=== PATIENT | female | born 1965 | race Caucasian/White ===

== ENCOUNTER 2017-03-09 15:04 | Inpatient (IN) ==
[2017-03-09] MEDS ORDERED: NS 1,000 ML IV PRN (15:30)
[2017-03-09 15:57] LABS: OCCULT BLOOD 1 POSITIVE (NEGATIVE)
[2017-03-09 16:26] LABS: MANUAL DIFF NEEDED? NO
[2017-03-09 16:29] LABS: BASO% 0.1 % (0.0-0.8); HEMATOCRIT 44.6 % (37.0-47.0); IMM GRAN# 0.16 X1000 (0.0-0.04); IMM GRAN% 0.8 % (0.0-0.5); LYMPH# 2.78 X1000 (1.2-3.4); LYMPH% 14.2 % (20.5-51.1); MCH 32.1 PG (27-31); MCHC 33.6 g/dL (33-37); MCV 95.3 FL (81-99); MONO# 1.26 X1000 (0.11-0.59); MONO% 6.4 % (1.7-9.3); MPV 10.2 FL (7.4-10.4); NEUT% 78.5 % (42.2-75.2); PLT 276 X1000 (130-400); RBC 4.68 XMIL (4.2-5.4)
[2017-03-09 16:49] LABS: INR 1.01 (0.86-1.15); PROTIME 13.6 Seconds (12.1-15.5)
[2017-03-09 16:50] LABS: PTT PL 42.3 Seconds (22.6-43.9)
[2017-03-09 16:53] LABS: AGAP 13; ALBUMIN 4.3 g/dL (3.5-5.0); ALKALINE PHOSPHATASE 92 U/L (32-104); BUN 14 mg/dL (8-22); CHLORIDE 102 mmol/L (98-107); COSMO 274; GOT 21 U/L (10-30); GPT 13 U/L (10-36); POTASSIUM 3.7 mmol/L (3.5-5.1); SODIUM 137 mmol/L (136-145); TCO2 22 mmol/L (25-35); TOTAL PROTEIN 7.9 g/dL (6.3-8.3)
[2017-03-09 17:28] LABS: URINE CULTURE PL NEEDED? NO
[2017-03-09 17:36] LABS: UR AMPHETAMINES QUAL NONE DETECTED (NONE DETECT); UR BARBITUATES QUAL NONE DETECTED (NONE DETECT); UR BENZODIAZEPIN QUAL PRESUMPTIVE POSITIVE (NONE DETECT); UR CANNABINOIDS QUAL NONE DETECTED (NONE DETECT); UR COCAINE QUAL NONE DETECTED (NONE DETECT); UR MDMA QUAL NONE DETECTED (NONE DETECT); UR METHADONE QUAL NONE DETECTED (NONE DETECT); UR METHAMPHETAMINE QUAL NONE DETECTED (NONE DETECT); UR OPIATES QUAL NONE DETECTED (NONE DETECT); UR OXYCODONE QUAL NONE DETECTED (NONE DETECT); UR PCP QUAL NONE DETECTED (NONE DETECT); UR TCA QUAL NONE DETECTED (NONE DETECT)
--- NOTE | 2017-03-09 17:43 | Diag Imaging Result Doc PS360 ---
EXAM: CHEST-PORTABLE HISTORY: pain TECHNIQUE: COMPARISON: 07/22/2011 FINDINGS: The lungs are well expanded. The heart is not enlarged. Minimal increased markings in the lower lungs. No consolidation. No pleural effusions identified. IMPRESSION: Fibrosis versus tiny infiltrates in the lung bases. Electronically signed by Chilo Sarabia 03/09/2017 5:40 PM
[2017-03-09 17:52] LABS: BILIRUBIN URINE NEGATIVE (NEGATIVE); BLOOD URINE NEGATIVE (NEGATIVE); CLARITY CLEAR (CLEAR); COLOR YELLOW; GLUCOSE URINE NEGATIVE (NEGATIVE); LEUKOCYTES URINE NEGATIVE (NEGATIVE); NITRITE URINE NEGATIVE (NEGATIVE); PROTEIN URINE NEGATIVE (NEGATIVE); SP GRAVITY URINE 1.015; URINE EPITHELIAL CELLS <10 /HPF (<10); URINE RBC <10 /HPF (<10); URINE SOURCE CLEAN CATCH; URINE WBC <10 /HPF (<10); UROBILINOGEN URINE NORMAL
--- NOTE | 2017-03-09 17:58 | PROVIDER DOCUMENTATION ---
This chart was entered by Tammy Ramon Scribe, acting as scribe for Alfredo Devlin MD. HPI-Abdominal Pain/GI Problem - General Source: patient - History of Present Illness-ABD Nature of Presenting Problems: Pt is 51 y/o F presents to the ED via EMS for abdominal pain and rectal bleeding. Pt states symptoms started this am. Pt denies N and V. Abdominal Pain Onset Location: reports: generalized abdomen Pain Radiation: reports: no radiation Quality of Pain: reports: aching Severity in ED: reports: mild Onset/Duration: reports: this morning Timing: reports: still present Activities at Onset: reports: light activity Exposure to sick contacts?: No Modifying Factors: improves with: nothing Associated Symptoms: reports: other (rectal bleeding). denies: anxiety, arm pain, back/neck pain, chest pain, constipation, cough, diaphoresis, diarrhea, dizziness, EENT symptoms, fatigue, fever/chills, genitourinary problems, headaches, heartburn, joint pain, loss of appetite, malaise, muscle aches, sinus congestion/drainage, nausea, rash, seizure, shortness of breath, sensory/ motor loss, pain with inspiration, swelling/mass in abdomen, syncope, vomiting, weakness, trouble walking Last BM: this morning Dark Stools Present?: reports: bright red blood Rectal Bleeding: reports: blood mixed with stool Rectal Pain: reports: none Emesis Description: reports: none Bruising or Bleeding Gums?: No Similar Symptoms Previously?: No Recently seen or treated by another doctor?: No <Alfredo Devlin - Last Filed: 03/09/17 17:58> <Lei Montano - Last Filed: 03/09/17 19:00> - General Chief Complaint: Rectal Bleeding Stated Complaint: GI GLEED Time Seen by Provider: 03/09/17 15:21 Allergies/Adverse Reactions: Patient Allergies Allergy/AdvReac Type Severity Reaction Status Date / Time codeine Allergy ANAPHYLAXIS Verified 03/09/17 15:08 cyclobenzaprine HCl * Allergy ANAPHYLAXIS Verified 03/09/17 15:08 [From Flexeril] Home Medications: Home Medication List Medication Instructions Recorded Confirmed Last Taken Type Clonidine [Catapres] 0.1 mg PO HS 01/05/15 01/05/15 01/04/15 History Levofloxacin 500 mg PO DAILY #7 tablet 01/05/15 Unknown Rx Levothyroxine [Synthroid] 88 microgm PO DAILY 01/05/15 01/05/15 12/29/14 History Oxybutynin [Ditropan] 5 mg PO DAILY #3 tablet 01/05/15 Unknown Rx Phenazopyridine HCl [Pyridium] 100 mg PO BID #6 tablet 01/05/15 Unknown Rx Quetiapine Fumarate [Seroquel] 400 mg PO DAILY 01/05/15 01/05/15 01/04/15 History Amlodipine Besylate [Norvasc] 10 mg PO DAILY #30 tablet 03/09/17 Unknown Rx Azithromycin 250 mg PO DAILY #6 tablet 03/09/17 Unknown Rx Review of Systems - Adult - REVIEW OF SYSTEMS - ADULT Constitutional: reports: no symptoms reported Eyes: reports: no symptoms reported Ears, Nose, Mouth & Throat: reports: no symptoms reported Cardiovascular: reports: no symptoms reported Respiratory: reports: no symptoms reported Gastrointestinal: reports: abdominal pain, rectal bleeding. denies: diarrhea, nausea, vomiting Genitourinary: reports: no symptoms reported Musculoskeletal: reports: no symptoms reported Integumentary: reports: no symptoms reported Neurological: reports: no symptoms reported Psychiatric: reports: no symptoms reported Endocrine: reports: no symptoms reported Hematologic/Lymphatic: reports: no symptoms reported Allergic/Immunologic: reports: no symptoms reported All Other Systems: Reviewed and Negative <Alfredo Devlin - Last Filed: 03/09/17 17:58> - REVIEW OF SYSTEMS - ADULT Constitutional: denies: chills, fever <Lei Montano - Last Filed: 03/09/17 19:00> Past History - Adult - PAST MEDICAL HISTORY-ADULT Review of Records: reports: Nursing Assessment Review, Medications Reviewed, Social history reviewed & non-contributory. Major Childhood Illnesses: reports: denies history Cardiovascular: reports: HTN Respiratory: reports: denies history Gastrointestinal: reports: denies history Obstetrical/Gynecological: reports: denies history Genitourinary: reports: denies history Musculoskeletal: reports: denies history Neurological: reports: denies history Endocrine/Immune: reports: thyroid disorder Other Conditions: reports: denies history - PRIOR SURGERIES/PROCEDURES Surgical/Procedure History: reports: appendectomy, hysterectomy, - IMMUNIZATION STATUS Childhood Immunizations: See Nurse Assessment Flu Vaccine: See Nurse Assessment - FAMILY HISTORY Family History: reviewed, not pertinent - SOCIAL HISTORY Smoking: quit less than 1 year, cigarettes Substance Use: denies Living Situation: family <ClausAlfredo Yuniel - Last Filed: 03/09/17 17:58> - PAST MEDICAL HISTORY-ADULT Review of Records: reports: Nursing Assessment Review, Medications Reviewed, Social history reviewed & non-contributory. Cardiovascular: reports: HTN <Lei Montano - Last Filed: 03/09/17 19:00> Physical Exam-General - PHYSICAL EXAM-ADULT Initial Vital Signs Reviewed: Yes - CONSTITUTIONAL General Appearance: alert, no apparent distress - EYES Eyes: PERRL/EOMI, pink conjunctivae - HEAD, EARS, NOSE, MOUTH & THROAT HENMT: normal ENT inspection - NECK Neck: normal inspection - RESPIRATORY Respiratory: chest non-tender, lungs clear, normal breath sounds - CARDIOVASCULAR Cardiovascular: normal peripheral pulses, regular rate, rhythm - GASTROINTESTINAL (ABDOMEN) Abdominal Exam: normal bowel sounds, soft, tenderness (generalized) - GENITOURINARY Rectal Exam: normal rectal tone, blood streaked stool. negative: black stool, hemorrhoids, mass, tenderness - LYMPHATIC Lymphatic: no adenopathy - MUSCULOSKELETAL Back Exam: normal inspection Extremity: normal inspection - SKIN Integumentary: warm/dry, pallor - NEUROLOGIC Neurologic: grossly normal - PSYCHIATRIC Psych/Mental Status: normal mood/affect, oriented x 3 <Alfredo Devlin - Last Filed: 03/09/17 17:58> - PHYSICAL EXAM-ADULT Initial Vital Signs Reviewed: Yes - CONSTITUTIONAL General Appearance: appears well, alert - EYES Eyes: PERRL/EOMI, pink conjunctivae <Lei Montano - Last Filed: 03/09/17 19:00> Progress - PLAN OF CARE/RESULTS Progress/Plan/Lab Results: Vital Signs - 8 hr 03/09/17 15:06 Temperature 97.4 F L Pulse Rate 74 Respiratory Rate 20 Blood Pressure 149/106 O2 Sat by Pulse Oximetry 95 Result Diagrams: 03/09/17 16:09 03/09/17 16:09 - XRAY 1 XRAY Study: Chest Impression: Abnormal XRAY Interpretation: fibrosis versus tiny infiltrates in the lung bases - CHANGE OF SHIFT REPORT (ED Provider) Report Given and Care Transferred to:: Dr. Montano Time of Transfer: 17:49 Items Pending: CT/MRI Results (head CT) <Alfredo Devlin - Last Filed: 03/09/17 17:58> - PLAN OF CARE/RESULTS Progress/Plan/Lab Results: Vital Signs - 8 hr 03/09/17 15:06 Temperature 97.4 F L Pulse Rate 74 Respiratory Rate 20 Blood Pressure 149/106 O2 Sat by Pulse Oximetry 95 Laboratory Results - last 24 hr 03/09/17 03/09/17 03/09/17 15:35 16:09 16:09 WBC 19.60 H RBC 4.68 Hgb 15.0 Hct 44.6 MCV 95.3 MCH 32.1 H MCHC 33.6 RDW Std Deviation 15.3 H Plt Count 276 MPV 10.2 Immature Gran % (Auto) 0.8 H Neut % (Auto) 78.5 H Lymph % (Auto) 14.2 L [place] % (Auto) 6.4 Eos % (Auto) 0.0 Baso % (Auto) 0.1 Immature Gran # (Auto) 0.16 H Neut # (Auto) 15.39 H Lymph # (Auto) 2.78 [place] # (Auto) 1.26 H Eos # (Auto) 0.00 Baso # (Auto) 0.01 PT INR APTT (Factor Assay) Sodium 137 Potassium 3.7 Chloride 102 Carbon Dioxide 22 L Anion Gap 13 BUN 14 Creatinine 0.5 Estimated GFR/1.73 m2 > 60 BUN/Creatinine Ratio 28 Glucose 99 Calculated Osmolality 274 Calcium 9.0 Total Bilirubin 0.70 AST 21 ALT 13 Alkaline Phosphatase 92 Total Protein 7.9 Albumin 4.3 Globulin 4.0 Albumin/Globulin Ratio 1.0 Urine Source Urine Color Urine Clarity Urine pH Ur Specific [place] Urine Protein Urine Ketones Urine Blood Urine Nitrite Urine Bilirubin Urine Urobilinogen Urine Microscopic RBC Urine WBC Urine Microscopic WBC Ur Epithelial Cells Urine Bacteria Urine Glucose Stool Occult Blood POSITIVE A Urine Opiates Screen Ur Oxycodone Screen Urine Methadone Screen Ur Barbituates Screen Ur Tricyclics Screen Ur Phencyclidine Scrn Ur Amphetamines Screen U Methamphetamines Scrn Urine MDMA Screen U Benzodiazepines Scrn Urine Cocaine Screen U Cannabinoids Screen Blood Type Antibody Screen 03/09/17 03/09/17 03/09/17 16:09 16:09 17:22 WBC RBC Hgb Hct MCV MCH MCHC RDW Std Deviation Plt Count MPV Immature Gran % (Auto) Neut % (Auto) Lymph % (Auto) [place] % (Auto) Eos % (Auto) Baso % (Auto) Immature Gran # (Auto) Neut # (Auto) Lymph # (Auto) [place] # (Auto) Eos # (Auto) Baso # (Auto) PT 13.6 INR 1.01 APTT (Factor Assay) 42.3 Sodium Potassium Chloride Carbon Dioxide Anion Gap BUN Creatinine Estimated GFR/1.73 m2 BUN/Creatinine Ratio Glucose Calculated Osmolality Calcium Total Bilirubin AST ALT Alkaline Phosphatase Total Protein Albumin Globulin Albumin/Globulin Ratio Urine Source CLEAN CATCH Urine Color YELLOW Urine Clarity CLEAR Urine pH 6.0 Ur Specific [place] 1.015 Urine Protein NEGATIVE Urine Ketones TRACE Urine Blood NEGATIVE Urine Nitrite NEGATIVE Urine Bilirubin NEGATIVE Urine Urobilinogen NORMAL Urine Microscopic RBC <10 Urine WBC NEGATIVE Urine Microscopic WBC <10 Ur Epithelial Cells <10 Urine Bacteria NEGATIVE Urine Glucose NEGATIVE Stool Occult Blood Urine Opiates Screen Ur Oxycodone Screen Urine Methadone Screen Ur Barbituates Screen Ur Tricyclics Screen Ur Phencyclidine Scrn Ur Amphetamines Screen U Methamphetamines Scrn Urine MDMA Screen U Benzodiazepines Scrn Urine Cocaine Screen U Cannabinoids Screen Blood Type AB NEGATIVE Antibody Screen NEGATIVE 03/09/17 17:22 WBC RBC Hgb Hct MCV MCH MCHC RDW Std Deviation Plt Count MPV Immature Gran % (Auto) Neut % (Auto) Lymph % (Auto) [place] % (Auto) Eos % (Auto) Baso % (Auto) Immature Gran # (Auto) Neut # (Auto) Lymph # (Auto) [place] # (Auto) Eos # (Auto) Baso # (Auto) PT INR APTT (Factor Assay) Sodium Potassium Chloride Carbon Dioxide Anion Gap BUN Creatinine Estimated GFR/1.73 m2 BUN/Creatinine Ratio Glucose Calculated Osmolality Calcium Total Bilirubin AST ALT Alkaline Phosphatase Total Protein Albumin Globulin Albumin/Globulin Ratio Urine Source Urine Color Urine Clarity Urine pH Ur Specific [place] Urine Protein Urine Ketones Urine Blood Urine Nitrite Urine Bilirubin Urine Urobilinogen Urine Microscopic RBC Urine WBC Urine Microscopic WBC Ur Epithelial Cells Urine Bacteria Urine Glucose Stool Occult Blood Urine Opiates Screen NONE DETECTED Ur Oxycodone Screen NONE DETECTED Urine Methadone Screen NONE DETECTED Ur Barbituates Screen NONE DETECTED Ur Tricyclics Screen NONE DETECTED Ur Phencyclidine Scrn NONE DETECTED Ur Amphetamines Screen NONE DETECTED U Methamphetamines Scrn NONE DETECTED Urine MDMA Screen NONE DETECTED U Benzodiazepines Scrn PRESUMPTIVE POSITIVE A Urine Cocaine Screen NONE DETECTED U Cannabinoids Screen NONE DETECTED Blood Type Antibody Screen Orders Category Date Time Status CHEST-PORTABLE [RAD] Stat Exams 03/09/17 17:19 Completed HEAD W/O CONTRAST [CT] Stat Exams 03/09/17 17:38 Completed CBC WITH ELECTRONIC DIFF [HEME] Stat Lab 03/09/17 16:09 Completed COMPREHENSIVE METABOLIC PANEL [CHEM] Stat Lab 03/09/17 16:09 Completed OCCULT BLOOD NON-FECES PL Stat Lab 03/09/17 15:54 Ordered OCCULT BLOOD SCREEN STOOL PL Stat Lab 03/09/17 15:35 Completed PROTIME WITH INR PL [COAG] Stat Lab 03/09/17 16:[address] [COAG] Stat Lab 03/09/17 16:09 Completed TYPE & SCREEN [BBK] Stat Lab 03/09/17 16:[address] W/POSS RFLX CULT [URINALYSIS] Stat Lab 03/09/17 17:22 Completed URINE DRUG SCREEN PL Stat Lab 03/09/17 17:22 Completed 0.9% Sodium Chloride Inj [Ns] 1,000 ml Med 03/09/17 15:30 Active IV 125 mls/hr Amlodipine [Norvasc] Med 03/09/17 18:51 Once 10 mg PO NOW ONE CefTRIAXONE 1 GM/NS [Rocephin 1 gm/Ns] Med 03/09/17 18:51 Ordered 1 gm in 50 ml IV NOW Result Diagrams: 03/09/17 16:09 03/09/17 16:09 - REASSESSMENT Reassessment #1 Time Reassessed: 18:53 Status: improving (will treat her infiltrate as pneumonia for now, arrange referral to GI for colonoscopy, and adjust BP medications for fu with Dr Jim ) <Lei Montano - Last Filed: 03/09/17 19:00> Departure <Alfredo Devlin - Last Filed: 03/09/17 17:58> - Departure Date of Disposition Decision: 03/09/17 Time of Disposition Decision: 18:54 Certified Medical Emergency: Emergent - Critical Care Note This patient required my direct & personal management of CC.: No <Lei Montano - Last Filed: 03/09/17 19:00> - Departure DIAGNOSIS: Pulmonary fibrosis, unspecified GI bleeding Qualifiers: GI bleed type/associated pathology: unspecified gastrointestinal hemorrhage type Qualified Code(s): K92.2 - Gastrointestinal hemorrhage, unspecified Hypertension Qualifiers: Hypertension type: essential hypertension Qualified Code(s): I10 - Essential ( primary) hypertension Disposition: HOME 01 Condition: Stable Additional Freetext Instructions: fu with Dr krishna for your blood pressure stabilization, make appointment with Dr Ramirez to investigate your GI bleeding ED Follow Up Instructions: You have been treated by a care provider in the Emergency Department. These instructions are being provided to you so you can have an understanding of how to care for yourself upon discharge. Upon discharge from the Emergency Department, you are responsible for making arrangements for follow-up care by a physician of your choice. Take all prescribed medications as directed. Return to the Emergency Department immediately for any new or worsening symptoms. You may call the Physician Referral phone number at [phone] to obtain a list of Physicians who are taking new patients. Prescriptions: Azithromycin 250 mg PO DAILY #6 tablet Amlodipine Besylate [Norvasc] 10 mg PO DAILY #30 tablet Referrals and Follow-Ups: Justo Brown MD [Primary Care Provider] - This chart was documented by the indicated scribe, (Tammy Ramon Scribe) and accurately reflects the services I performed and decisions made by me, Alfredo Devlin MD, as attested by the provider's signature.
--- NOTE | 2017-03-09 18:10 | Diag Imaging Result Doc PS360 ---
EXAM: HEAD W/O CONTRAST HISTORY: AMS TECHNIQUE: Dose reduction protocol COMPARISON: 07/23/2011 FINDINGS: No parenchymal hemorrhage. No epidural or subdural hematoma. No subarachnoid hemorrhage. No mass identified on this noncontrasted exam. No hydrocephalus. Small old infarct in left cerebellum. No sinus opacification. IMPRESSION: No hemorrhage. Small old left cerebellar infarct Electronically signed by Chilo Sarabia 03/09/2017 6:07 PM
[2017-03-09] MEDS ORDERED: ROCEPHIN 1 GM/NS 1 GM/50 ML IVPB IV ONE (18:51)
[2017-03-09] MEDS ORDERED: NORVASC PO ONE (18:51)
--- NOTE | 2017-03-09 21:13 | Diag Imaging Result Doc PS360 ---
EXAM: CT ABD/PELVIS W/ IV CONT ONLY HISTORY: rectal bleeding/ leukocytosis TECHNIQUE: Dose reduction protocol COMPARISON: 01/05/2015 FINDINGS: Small infiltrates or atelectasis in the lower lungs. There is fatty infiltration of the liver. The liver is not as fat is a prior exam no calcified gallstones or adjacent inflammation. The gallbladder is distended. Normal spleen, pancreas, and adrenal glands. Normal enhancement of the kidneys. No aortic aneurysm. There is thickening to the wall of the distal descending, sigmoid, and rectum. Mild adjacent inflammation. No free air. No abscess. The urinary bladder is mildly distended. The uterus has been removed. No pelvic mass. IMPRESSION: 1.Colitis involving the distal descending and sigmoid colon 2.Hysterectomy 3.Fatty infiltration of the liver 4.Basilar atelectasis versus small infiltrates in the lower lungs Electronically signed by Chilo Sarabia 03/09/2017 9:11 PM
[2017-03-09 22:07] LABS: BE 0.9 mmoll (-3.0-3.0); BLOOD TYPE ARTERIAL; DRAW SITE R RADIAL; METHB 1.3 % (0.0-1.5); O2(CT) 17.6 mL/dL (15.0-23.0); PCO2(98.6) 39 mmHg (35-45); SAMPLE BLOOD; THB 15.1 g/dL (11.5-17.4); pH(98.6) 7.42 (7.35-7.45)
[2017-03-09 22:10] LABS: MODALITY ROOM AIR; PO2(98.6) 49 mmHg (60-100)
[2017-03-09 22:11] LABS: ALLEN TEST YES
[2017-03-09 23:22] LABS: BE 0.3 mmoll (-3.0-3.0); BLOOD TYPE ARTERIAL; DRAW SITE R RADIAL; METHB 1.1 % (0.0-1.5); O2(CT) 17.2 mL/dL (15.0-23.0); PCO2(98.6) 38 mmHg (35-45); PO2(98.6) 56 mmHg (60-100); SAMPLE BLOOD; SAO2 95.7 % (95.0-100.0); pH(98.6) 7.42 (7.35-7.45)
[2017-03-09 23:28] LABS: ALLEN TEST YES; MODALITY ROOM AIR
[2017-03-10] MEDS ORDERED: ZITHROMAX PO ONE
[2017-03-10] MEDS ORDERED: XANAX PO SCH ×2 (03:13→21:00)
[2017-03-10] MEDS: CATAPRES PO SCH ×2 (03:28→21:23)
[2017-03-10] MEDS: SEROQUEL PO SCH ×2 (03:28→21:23)
--- NOTE | 2017-03-10 06:36 | Diag Imaging Result Doc PS360 ---
EXAM: CT THORAX W/CONTRAST HISTORY: PNEUMONIA TECHNIQUE: COMPARISON: None. FINDINGS: No pleural effusions. Heart is mildly prominent. No thoracic aortic aneurysm or dissection. Normal opacification of the pulmonary arteries and their major branches. There are small mediastinal lymph nodes. A calcified granuloma is found anteriorly in the right lung on image 79. Increased interstitial markings in the lung bases believed to be atelectasis or fibrosis. Prominent emphysema. There are several tiny nonspecific scattered nodules with the largest measuring 6 mm anteriorly in the right lung. IMPRESSION: 1.Severe emphysema 2.Likely basilar atelectasis or fibrosis rather than pneumonia 3.Nonspecific tiny scattered nodules 4.A preliminary report was given at 11:57 PM Electronically signed by Chilo Sarabia 03/10/2017 6:33 AM
[2017-03-10] MEDS: DUONEB (A & A) INH SCH ×5 (07:41→23:01)
[2017-03-10] MEDS: SOLU-MEDROL IV SCH ×4 (07:43→23:00)
[2017-03-10] MEDS: LEVAQUIN 750 MG/D5W 750 MG/150 ML IVPB IV SCH (07:43)
[2017-03-10] MEDS ORDERED: SEROQUEL PO SCH ×2 (09:00→21:00)
[2017-03-10 09:21] LABS: MANUAL DIFF NEEDED? NO
[2017-03-10 09:23] LABS: BASO% 0.1 % (0.0-0.8); HEMATOCRIT 43.6 % (37.0-47.0); HEMOGLOBIN 14.6 g/dL (12.0-16.0); IMM GRAN# 0.14 X1000 (0.0-0.04); IMM GRAN% 0.8 % (0.0-0.5); LYMPH# 2.42 X1000 (1.2-3.4); LYMPH% 13.5 % (20.5-51.1); MCHC 33.5 g/dL (33-37); MCV 95.6 FL (81-99); MONO# 1.26 X1000 (0.11-0.59); MPV 10.2 FL (7.4-10.4); NEUT% 78.6 % (42.2-75.2); PLT 257 X1000 (130-400); RBC 4.56 XMIL (4.2-5.4)
[2017-03-10 09:37] LABS: AGAP 10; BUN 10 mg/dL (8-22); CALCIUM 8.6 mg/dL (8.8-10.2); CHLORIDE 103 mmol/L (98-107); COSMO 271; POTASSIUM 3.6 mmol/L (3.5-5.1); SODIUM 136 mmol/L (136-145); TCO2 24 mmol/L (25-35)
[2017-03-10] MEDS: XANAX PO SCH ×2 (11:02→21:22)
[2017-03-10] MEDS: FLAGYL 500 MG/NS 500 MG/100 ML IVPB IV SCH ×3 (11:37→17:59)
[2017-03-10] MEDS: NS 1,000 ML IV SCH ×2 (12:25→21:22)
--- NOTE | 2017-03-10 12:37 | HISTORY AND PHYSICAL ---
PRIMARY CARE PHYSICIAN: Cadence Aggarwal out of [place]. HISTORY OF PRESENT ILLNESS: Patient presented to the emergency room on date of admission reporting bright red blood with stool that happened once on date of evaluation. She also had preceding diarrhea the night before that has since resolved and said that she went several episodes the night prior. She denies any recent rectal bleeding since or blood with her stool. She does continue to report weakness and overall feeling unwell. She reports abdominal cramping. Of note, she has also had increased dyspnea and a nonproductive cough but she denies any fever or chills and she denies any nausea, vomiting, or additional symptoms. She was found to be hypoxic. She does have a long-term smoking history and feels she probably has chronic lung disease but she has never been diagnosed. She will be admitted for evaluation of her rectal bleeding as well as her hypoxia and a COPD exacerbation. PAST MEDICAL HISTORY: 1. Cervical cancer. 2. Hypertension. 3. Hypothyroidism. 4. Chronic pain. 5. Anxiety. PAST SURGICAL HISTORY: 1. Appendectomy. 2. . 3. Hysterectomy. SOCIAL HISTORY: Patient smokes a pack a day and has done so since she was 14 years old. She denies any alcohol or drug use. FAMILY HISTORY: Positive for cancer but she is not sure what type, this was with her mother. ALLERGIES: Codeine and Flexeril. MEDICATIONS: 1. Seroquel 400 mg p.o. at bedtime. 2. Clonidine 0.1 mg p.o. at bedtime. 3. Xanax 1 mg p.o. at bedtime. REVIEW OF SYSTEMS: Negative 10-point review of systems other than stated in HPI. LABS AND DIAGNOSTICS: CBC, white count 19.60, hemoglobin and hematocrit 15 and 44.6, platelets 276,000. PT 13.6, INR 1.01, PTT 42.3. Blood gases: She had a pH 7.42, PO2 of 56, oxyhemoglobin was 81.7, carboxyhemoglobin was 13.6. BMP: Sodium 137, potassium 3.7, chloride 102, CO2 22, BUN 14, creatinine 0.5. Glucose 99. AST and ALT were within normal limits. UA was within normal limits. She did have a positive occult blood with her stool and was drug screened. Chest CT shows severe emphysema, likely basilar atelectasis or fibrosis or pneumonia. Nonspecific tiny scattered nodules. Head CT showed no hemorrhage with small old cerebellar infarct. Chest x-ray showed fibrosis versus tiny infiltrates in the lung bases. PHYSICAL EXAMINATION: VITAL SIGNS: Temperature 98.6 degrees, pulse 92. Respirations 16. Blood pressure 100/72, O2 saturation 98% on 3 L per nasal cannula. HEENT: Normocephalic, atraumatic. Mucous membranes moist. NECK: Supple. No JVD. CHEST: Bilateral breath sounds diminished. No accessory muscle use noted. Respirations unlabored. CARDIOVASCULAR: Normal S1, S2. ABDOMEN: Abdomen is soft, nontender, nondistended. Positive bowel sounds. EXTREMITIES: Contusion noted to the left anterior knee. Range of motion appropriate. No other abnormalities. NEUROLOGIC: Patient is alert and oriented x4. No neurological deficits noted. ASSESSMENT AND PLAN: 1. Gastrointestinal bleed. We will continue to follow with serial hemoglobin and hematocrit as well as monitor. Likely secondary to colitis. Will treat with Flagyl and Levaquin. Continue to follow. 2. Colitis. We will treat with Levaquin and Flagyl and continue to follow. 3. Elevated white blood count. Will continue to follow this as well. This is likely due to colitis. 4. Hypoxia. Patient likely has long-term chronic lung disease from her long-term nicotine dependence. However this has not been diagnosed. 5. Pulmonary nodules. We will have her follow up with Pulmonology on discharge. 6. History of nicotine dependence. Discussed smoking cessation. 7. Chronic pain. We will treat accordingly. 8. Anxiety. We will treat accordingly and continue her medications. 9. Hypertension. We will continue to follow. Further orders pending physician evaluation. Dictated by CAMILLA Abarca for Rick Campos MD cc: CAMILLA Abarca MD
[2017-03-10] MEDS: NICODERM PATCH TD SCH (15:18)
[2017-03-10] MEDS ORDERED: CATAPRES PO SCH (21:00)
[2017-03-11] MEDS: FLAGYL 500 MG/NS 500 MG/100 ML IVPB IV SCH ×5 (01:00→18:32)
[2017-03-11] MEDS: DUONEB (A & A) INH SCH ×6 (03:17→23:02)
[2017-03-11] MEDS: SOLU-MEDROL IV SCH ×4 (05:47→23:07)
[2017-03-11 06:42] LABS: BASO% 0.1 % (0.0-0.8); EOS# 0.01 X1000 (0.0-0.7); EOS% 0.1 % (0.0-10.0); HEMATOCRIT 40.1 % (37.0-47.0); HEMOGLOBIN 13.2 g/dL (12.0-16.0); IMM GRAN# 0.18 X1000 (0.0-0.04); LYMPH# 1.27 X1000 (1.2-3.4); MANUAL DIFF NEEDED? YES; MCH 32.1 PG (27-31); MCHC 32.9 g/dL (33-37); MCV 97.6 FL (81-99); MONO# 0.48 X1000 (0.11-0.59); MONO% 2.6 % (1.7-9.3); MPV 10.3 FL (7.4-10.4); NEUT% 89.2 % (42.2-75.2); PLT 259 X1000 (130-400); RBC 4.11 XMIL (4.2-5.4)
[2017-03-11 06:59] LABS: AGAP 10; BUN 8 mg/dL (8-22); CALCIUM 8.1 mg/dL (8.8-10.2); CHLORIDE 108 mmol/L (98-107); COSMO 279; POTASSIUM 3.8 mmol/L (3.5-5.1); SODIUM 140 mmol/L (136-145); TCO2 22 mmol/L (25-35)
[2017-03-11 07:31] LABS: BANDS 3 % (0-1); LYMPHS 7 % (21-51); MONO 1 % (1-9)
[2017-03-11] MEDS: LEVAQUIN 750 MG/D5W 750 MG/150 ML IVPB IV SCH (09:22)
[2017-03-11] MEDS: NS 1,000 ML IV SCH ×2 (09:22→20:43)
[2017-03-11] MEDS: NICODERM PATCH TD SCH (09:23)
[2017-03-11] MEDS: XANAX PO SCH ×2 (09:23→20:42)
--- NOTE | 2017-03-11 11:08 | PROGRESS NOTE ---
DATE: 03/11/2017 SUBJECTIVE: This patient is still complaining of abdominal pain. She is not complaining of shortness of breath. As per the patient, 3 days ago she had 2-3 episodes of watery bowel movement but since then no more bowel movements and she is asking for a stool softener. She is tolerating fluids. I will advance the diet to soft mechanical diet today. She denies nausea, vomiting. Usually she goes for a bowel movement every 2 days. OBJECTIVE: Vital Signs: Temperature 97.5 degrees, pulse 67, respiratory rate 18, blood pressure 108/60, O2 saturation 95% on 2 L of nasal cannula. HEENT: Head normocephalic. No trauma. PERRLA. Neck: Supple. No JVD. No masses. Central trachea. Chest: Clear to auscultation. Decreased breath sounds globally. No wheezing. No rales. Cardiovascular: Regular rate and rhythm. No murmurs. Abdomen: Soft, generalized mild tenderness to palpation. Positive bowel sounds. Extremities: Contusion noted to the left anterior knee. Range of motion appropriate. No other abnormalities. Neurological: The patient is alert and oriented x4. No focal neurological deficits. Lower back pain that is chronic. LABORATORY: WBC 18.1, hemoglobin 13.2, hematocrit 40.1, platelets 259,000. Sodium 140, potassium 3.8, chloride 108, bicarbonate 22, BUN 8, creatinine 0.4, glucose 124, calcium 8.1. Stool Hemoccult positive. ASSESSMENT: 1. Colitis involving the distal descending and sigmoid colon. I will continue with levofloxacin and Flagyl, no signs of peritoneal irritation. I will continue with the same management for now. I will advance her diet. 2. Gastrointestinal bleed, this is likely secondary to her colitis. Hemoglobin and hematocrit has been stable. We will monitor the hemoglobin and hematocrit daily. Probably this patient will need to be evaluated by the Gastroenterology Department if the hemoglobin and hematocrit gets worse. But for now, I think she can be seen as an outpatient once her colitis is better. 3. Elevated white blood count, no fever, but the WBC is still high. We will continue to monitor. 4. Hypoxia. The patient has a long-term chronic lung disease and nicotine dependence. However this has not been diagnosed. Probably, she will need to do a pulmonary function test after discharge. 5. Pulmonary nodules. We will have her follow up with pulmonary on discharge. 6. History of nicotine dependence. This patient has been highly advised against tobacco abuse. I will continue with daily cessation education. 7. Chronic pain. Continue with the same management. 8. Anxiety. We will continue with home medication. 9. Hypertension stable. Continue to monitor. PLAN: This patient has a long history of smoking. A CT scan of the chest showed a severe emphysema, bibasilar atelectasis or fibrosis, nonspecific tiny nodules. Upon discharge this patient should follow with a pulmonary doctor so she can get a pulmonary function test. This patient likely has COPD, but she has never been told about that. For her colitis, for now, I will continue with the same management. I will advance her diet and I will monitor the hemoglobin and hematocrit. Probably, she will need to be scoped in the near future. cc: Rick Campos MD
[2017-03-11] MEDS ORDERED: NICODERM PATCH TD ONE (15:00)
[2017-03-11] MEDS: CATAPRES PO SCH (20:42)
[2017-03-11] MEDS: SEROQUEL PO SCH (20:42)
[2017-03-12] MEDS: FLAGYL 500 MG/NS 500 MG/100 ML IVPB IV SCH ×4 (01:25→18:21)
[2017-03-12] MEDS: DUONEB (A & A) INH SCH ×6 (03:03→23:54)
[2017-03-12] MEDS: NS 1,000 ML IV SCH ×4 (06:18→21:28)
[2017-03-12] MEDS: SOLU-MEDROL IV SCH (06:18)
[2017-03-12 06:58] LABS: BASO% 0.1 % (0.0-0.8); HEMATOCRIT 37.9 % (37.0-47.0); HEMOGLOBIN 12.2 g/dL (12.0-16.0); IMM GRAN% 1.1 % (0.0-0.5); LYMPH# 1.37 X1000 (1.2-3.4); LYMPH% 4.9 % (20.5-51.1); MANUAL DIFF NEEDED? YES; MCH 31.7 PG (27-31); MCHC 32.2 g/dL (33-37); MCV 98.4 FL (81-99); MONO# 1.15 X1000 (0.11-0.59); MONO% 4.1 % (1.7-9.3); MPV 10.8 FL (7.4-10.4); NEUT% 89.8 % (42.2-75.2); PLT 282 X1000 (130-400); RBC 3.85 XMIL (4.2-5.4)
[2017-03-12 07:49] LABS: AGAP 11; BUN 10 mg/dL (8-22); CALCIUM 8.4 mg/dL (8.8-10.2); CHLORIDE 108 mmol/L (98-107); COSMO 279; POTASSIUM 3.7 mmol/L (3.5-5.1); SODIUM 139 mmol/L (136-145); TCO2 20 mmol/L (25-35)
[2017-03-12 08:37] LABS: BANDS 3 % (0-1); LYMPHS 6 % (21-51); MONO 1 % (1-9)
[2017-03-12] MEDS: XANAX PO SCH ×2 (09:19→21:27)
[2017-03-12] MEDS: SUBOXONE 8 MG/2 MG SL SCH ×2 (09:19→21:27)
[2017-03-12] MEDS: LEVAQUIN 750 MG/D5W 750 MG/150 ML IVPB IV SCH (09:20)
[2017-03-12] MEDS: NICODERM PATCH TD SCH (09:20)
--- NOTE | 2017-03-12 15:00 | PROGRESS NOTE ---
DATE: 03/12/2017 SUBJECTIVE: The patient is feeling somewhat better today. She still has some diffuse abdominal pain. She had 1 bowel movement today. She denies any nausea or vomiting. She is tolerating a GI soft diet, eating 100% of her meal. OBJECTIVE: Vital Signs: Blood pressure is 104/76, with a heart rate of 84, respirations are 18, temperature is 97.6 degrees oral, with oxygen saturations of 93-95% on 2 L nasal cannula. Cardiovascular: Regular rate and rhythm. S1 and S2 are appreciated. Pulmonary: Breath sounds are clear with no increased work of breathing noted. Gastrointestinal: Abdomen is soft. It has generalized tenderness, with bowel sounds in all 4 quadrants. Neurologic: She is alert and oriented x3, with cranial nerves 2-12 grossly intact. Diagnostics: WBC is 28.1, with a hemoglobin of 12.2, hematocrit 37.9, and platelets of 282,000. Sodium is 139, potassium 3.7, BUN 10, creatinine 0.5, with a glucose of 145. ASSESSMENT: 1. Colitis involving the distal descending and sigmoid colon. We will continue with Levaquin and Flagyl. Continue with a GI soft diet. 2. Gastrointestinal bleed. This is likely secondary to colitis. We will monitor hemoglobin and hematocrit. She will ultimately need a GI workup. This can be done on an outpatient basis once her colitis has resolved. 3. Leukocytosis. This continues to be high. We will follow. 4. Pulmonary nodules. She will follow up with pulmonary on discharge. 5. Chronic pain. We will continue with her regimen. 6. Anxiety. We will continue with her home medication. 7. Hypertension. This is stable. We will continue to follow. Dictated by CAMILLA Alfaro for Justo Brown MD cc: CAMILLA Alfaro MD
[2017-03-12] MEDS ORDERED: SOLU-MEDROL IV SCH (18:00)
[2017-03-12] MEDS: SEROQUEL PO SCH (21:27)
[2017-03-12] MEDS: CATAPRES PO SCH (21:27)
[2017-03-13] MEDS: FLAGYL 500 MG/NS 500 MG/100 ML IVPB IV SCH ×4 (01:40→18:13)
[2017-03-13] MEDS: DUONEB (A & A) INH SCH ×6 (03:22→23:29)
[2017-03-13] MEDS: NS 1,000 ML IV SCH ×2 (06:07)
[2017-03-13 07:01] LABS: HEMATOCRIT 39.7 % (37.0-47.0); HEMOGLOBIN 12.6 g/dL (12.0-16.0); MCH 31.6 PG (27-31); MCHC 31.7 g/dL (33-37); MCV 99.5 FL (81-99); MPV 11.1 FL (7.4-10.4); RBC 3.99 XMIL (4.2-5.4)
[2017-03-13 07:09] LABS: AGAP 8; ALBUMIN 3.5 g/dL (3.5-5.0); ALKALINE PHOSPHATASE 67 U/L (32-104); BUN 12 mg/dL (8-22); CALCIUM 8.4 mg/dL (8.8-10.2); CHLORIDE 103 mmol/L (98-107); COSMO 271; GOT 11 U/L (10-30); GPT 9 U/L (10-36); POTASSIUM 3.5 mmol/L (3.5-5.1); SODIUM 135 mmol/L (136-145); TCO2 24 mmol/L (25-35); TOTAL BILIRUBIN < 0.15 mg/dL (0.20-1.00); TOTAL PROTEIN 6.4 g/dL (6.3-8.3)
[2017-03-13] MEDS: NICODERM PATCH TD SCH (09:11)
[2017-03-13] MEDS: LEVAQUIN 750 MG/D5W 750 MG/150 ML IVPB IV SCH (09:11)
[2017-03-13] MEDS: SUBOXONE 8 MG/2 MG SL SCH ×2 (09:14→20:13)
[2017-03-13] MEDS: XANAX PO SCH ×3 (09:14→20:13)
--- NOTE | 2017-03-13 11:18 | PROGRESS NOTE ---
DATE: 03/13/2017 SUBJECTIVE: The patient notes that she is feeling a little bit better. She is still having some shortness of breath and coughing. OBJECTIVE: Temperature 97, pulse 73, respiratory rate 18, BP 106/71, sat 95% on 3 L.General: Patient is awake, alert. She is currently in no respiratory distress. Speech is regular. Memory is intact. Neck: Supple. CV: Regular rate. Chest: Decreased but equal breath sounds bilaterally. No wheezing. Abdomen: Soft. Extremities: Moves all extremities. DIAGNOSTIC DATA: WBC 26, hemoglobin and hematocrit 12 and 39. CMP essentially normal. ASSESSMENT: 1. Leukocytosis. White count had been as low as 17 and has climbed back up to 28 yesterday and down to 26 today. Certainly expect clinically that this is a steroid effect as she is breathing easier, feeling better. She is requiring less oxygen. 2. Colitis. Will repeat CT scan as her white count has elevated. 3. Hypoxemia improving. 4. Pulmonary nodules stable. 5. Chronic tobacco abuse. Again, discussed with patient the perils of smoking. 6. Chronic pain. Again discussed with patient the perils of taking Suboxone and smoking i.e. . Discussed with her the respiratory suppression with both. 7. Chronic anxiety. 8. Hypertension. PLAN: Hopefully patient can be discharged home in the next 1-2 days. We will repeat chest x-ray and CT today and repeat her labs in the morning. Continue to follow. Further orders as needed. cc: Justo Brown MD
--- NOTE | 2017-03-13 11:54 | Diag Imaging Result Doc PS360 ---
CHEST-2 VIEWS - 03/13/2017 INDICATION: hypoxia TECHNIQUE: COMPARISON: Chest x-ray and CT from 03/09/2017 FINDINGS: Lungs are hyperexpanded compatible with COPD. There are some ill-defined bilateral lower lobe infiltrates similar to prior. There is also a trace left pleural effusion that has worsened since prior. No new infiltrates. Heart size remains normal. IMPRESSION: 1. New trace left pleural effusion. 2. Stable COPD with bilateral lower lobe infiltrates/pneumonia. Electronically signed by Shantanu Villagran 03/13/2017 11:52 AM
--- NOTE | 2017-03-13 12:03 | Diag Imaging Result Doc PS360 ---
ABDOMEN/PELVIS W/CONTRAST - 03/13/2017 INDICATION: elev wbc/colitis TECHNIQUE: A CT dose reduction protocol was used. COMPARISON: 03/09/2017 FINDINGS: There is improvement in the wall thickening and surrounding inflammation at the distal descending and sigmoid colon. No bowel obstruction. There is constipation with significant stool in the ascending and transverse colon. No obvious transition point. No free air or free fluid. Stable small hemangioma in the superior right lobe of the liver. Urinary bladder and rectum are normal. There are moderate degenerative changes of the spine. No acute or suspicious bony lesion. There is worsening bilateral lower lobe infiltrate and consolidation. No significant effusions. Heart size remains normal. IMPRESSION: 1. Improvement in the sigmoid colitis. No complications. 2. Worsening bilateral lower lobe infiltrate/pneumonia. 3. Moderate constipation of the proximal half of the colon. Electronically signed by Shantanu Villagran 03/13/2017 12:01 PM
[2017-03-13] MEDS ORDERED: SOLU-MEDROL IV SCH (18:00)
[2017-03-13] MEDS: SEROQUEL PO SCH (20:13)
[2017-03-13] MEDS: CATAPRES PO SCH (20:13)
[2017-03-14] MEDS: FLAGYL 500 MG/NS 500 MG/100 ML IVPB IV SCH ×2 (00:51→06:05)
[2017-03-14] MEDS: DUONEB (A & A) INH SCH ×2 (03:03→07:43)
[2017-03-14] MEDS ORDERED: FLAGYL 500 MG/NS 500 MG/100 ML IVPB IV SCH (06:38)
[2017-03-14 06:41] LABS: AGAP 8; ALBUMIN 3.9 g/dL (3.5-5.0); ALKALINE PHOSPHATASE 66 U/L (32-104); BUN 11 mg/dL (8-22); CALCIUM 8.9 mg/dL (8.8-10.2); CHLORIDE 102 mmol/L (98-107); COSMO 274; GOT 12 U/L (10-30); GPT 10 U/L (10-36); SODIUM 138 mmol/L (136-145); TCO2 27 mmol/L (25-35); TOTAL PROTEIN 6.9 g/dL (6.3-8.3)
[2017-03-14 06:49] LABS: HEMOGLOBIN 14.6 g/dL (12.0-16.0); MCH 31.7 PG (27-31); MCHC 32.4 g/dL (33-37); MCV 97.6 FL (81-99); MPV 10.7 FL (7.4-10.4); RBC 4.61 XMIL (4.2-5.4)
[2017-03-14 08:45] VITALS: BP 114/75
[2017-03-14] MEDS: SUBOXONE 8 MG/2 MG SL SCH (08:57)
[2017-03-14] MEDS: XANAX PO SCH (08:58)
[2017-03-14] MEDS: NICODERM PATCH TD SCH (08:59)
[2017-03-14] MEDS ORDERED: FLAGYL PO SCH (09:00)
[2017-03-14] MEDS ORDERED: LEVAQUIN PO SCH (09:00)
[2017-03-14] MEDS ORDERED: OMNICEF PO SCH (09:00)
--- NOTE | 2017-03-14 19:01 | DISCHARGE SUMMARY ---
ADMISSION DATE: 03/09/2017 DISCHARGE DATE: 03/14/2017 DISCHARGE DIAGNOSES: 1. GI bleed stable. Hemoglobin and hematocrit has remained stable in hospital stay at 14 and 45. 2. Sepsis resolved. 3. Colitis improved on Levaquin and Flagyl. 4. Pneumonia improved on Levaquin and Omnicef. 5. Hypoxemia chronic secondary to chronic obstructive pulmonary disease and chronic smoking. 6. Chronic smoking. She has pulmonary nodules. We will need to continue to follow outpatient. 7. Chronic tobacco abuse. Again I discussed with patient the perils of smoking. 8. Leukocytosis improved. White count actually increased to currently down to 19,000. 9. Chronic pain. Again, discussed with patient the perils of Suboxone with smoking and benzodiazepines, i.e. sudden respiratory . 10. Chronic anxiety. Again, I discussed her the perils of benzodiazepines with opiates and smoking. 11. Hypertension. CONSULTATIONS: None. HOSPITAL COURSE: Patient is a 51-year-old female who was admitted as noted on the HPI and treated in the usual fashion. Placed on IV antibiotics. She was followed closely from a GI bleed standpoint. Thankfully she had no further complications during the hospital stay. She did have pneumonia and was placed on antibiotics to which she continued to improve. DISPOSITION: The patient will be discharged home. She will continue Omnicef and Levaquin for 10 days, Flagyl for 5 days. I discussed with her that she needs a probiotic of choice. I discussed with her that she needs to stop smoking. TIME SPENT: Greater than 35 minutes was spent in discharge planning and instructions. cc: Justo Brown MD
== END 2017-03-14 11:01 | disposition home or self-care (01) ==
LOC: P.ED 15:04 → P.MEDSURG 15:04 → SUATTDRO 23:04 → SUPCPDRO 23:04 → OBSVTOIN 23:04
PROVIDERS: ATTEND Family Medicine

== ENCOUNTER 2017-03-16 01:10 | Inpatient (IN) ==
[2017-03-16] MEDS ORDERED: NS 1,000 ML ONE ×2 (01:12)
[2017-03-16] MEDS ORDERED: NS 1,000 ML IV ONE ×2 (01:21→04:22)
[2017-03-16 01:59] LABS: BASO% 0.5 % (0.0-0.8); HEMATOCRIT 45.8 % (37.0-47.0); HEMOGLOBIN 15.4 g/dL (12.0-16.0); IMM GRAN# 0.81 X1000 (0.0-0.04); IMM GRAN% 3.9 % (0.0-0.5); LYMPH# 3.36 X1000 (1.2-3.4); LYMPH% 16.4 % (20.5-51.1); MANUAL DIFF NEEDED? NO; MCH 32.2 PG (27-31); MCHC 33.6 g/dL (33-37); MCV 95.6 FL (81-99); MONO# 1.55 X1000 (0.11-0.59); MONO% 7.6 % (1.7-9.3); MPV 10.7 FL (7.4-10.4); NEUT% 71.6 % (42.2-75.2); PLT 299 X1000 (130-400); RBC 4.79 XMIL (4.2-5.4)
[2017-03-16 02:00] LABS: BILIRUBIN URINE NEGATIVE (NEGATIVE); BLOOD URINE NEGATIVE (NEGATIVE); CLARITY CLEAR (CLEAR); COLOR YELLOW; GLUCOSE URINE NEGATIVE (NEGATIVE); LEUKOCYTES URINE 1+ (NEGATIVE); NITRITE URINE NEGATIVE (NEGATIVE); PROTEIN URINE NEGATIVE (NEGATIVE); URINE SOURCE CATH; UROBILINOGEN URINE NORMAL
[2017-03-16 02:01] LABS: URINE CULTURE PL NEEDED? YES; URINE EPITHELIAL CELLS <10 /HPF (<10); URINE RBC <10 /HPF (<10); URINE WBC <10 /HPF (<10)
[2017-03-16 02:39] LABS: AGAP 11; ALBUMIN 3.5 g/dL (3.5-5.0); ALKALINE PHOSPHATASE 59 U/L (32-104); AMYLASE 40 U/L (20-200); BUN 15 mg/dL (8-22); CALCIUM 8.1 mg/dL (8.8-10.2); CHLORIDE 102 mmol/L (98-107); COSMO 279; GOT 13 U/L (10-30); GPT 11 U/L (10-36); LIPASE 19 U/L (13-60); POTASSIUM 3.4 mmol/L (3.5-5.1); SODIUM 139 mmol/L (136-145); TCO2 26 mmol/L (25-35); TOTAL PROTEIN 6.4 g/dL (6.3-8.3)
--- NOTE | 2017-03-16 08:01 | Diag Imaging Result Doc PS360 ---
EXAM: CT ABD/PELVIS W/ IV CONT ONLY HISTORY: obstruction TECHNIQUE: CT of the abdomen with intravenous contrast and dose reduction (clarity.) COMMENT: There is improvement in the basilar opacities present bilaterally compared to 03/13/2017. The volume loss and consolidation in the medial right middle lobe have not changed significantly. The lucent lesion seen in the right hepatic lobe on image 32 of the previous study is less evident on today's study and this may result from slight differences in the timing of enhancement and indicate the lesion is a hemangioma. The adrenal glands are not enlarged. The pancreas and spleen are within normal limits. There are no gallstones. The kidneys are without evidence of hydronephrosis or mass. There is apparent contrast throughout the colon. Presumably this is from the previous study. This would indicate a fairly slow intestinal transit time. The small bowel is not distended. The appendix has been previously resected. CT of the pelvis with intravenous contrast: There has been previous hysterectomy. There is a Mckenna catheter in the bladder which is not distended. There is gas within the bladder. There is no evidence of free fluid. The regional skeleton is stable in appearance. IMPRESSION: Improved bilateral lower lobe pneumonia. No evidence of gastrointestinal obstruction. The possibility of slow intestinal transit time is suggested. Electronically signed by Christopher Ordonez 03/16/2017 7:59 AM
[2017-03-16] MEDS: SUBOXONE 8 MG/2 MG SL SCH ×2 (09:41→20:26)
[2017-03-16] MEDS: XANAX PO PRN ×2 (09:42→20:30)
[2017-03-16] MEDS: LEVAQUIN PO SCH (11:08)
[2017-03-16] MEDS: CULTURELLE PO SCH ×2 (11:08→20:26)
[2017-03-16] MEDS: FLAGYL PO SCH ×2 (12:40→17:01)
--- NOTE | 2017-03-16 17:44 | HISTORY AND PHYSICAL ---
PRIMARY CARE PHYSICIAN: Cadence Aggarwal [facility]. CHIEF COMPLAINT: Abdominal pain. HISTORY OF PRESENT ILLNESS: This is a 51-year-old female with a history of cervical cancer, hypertension, hypothyroidism. She presented to the emergency room complaining of generalized abdominal pain with 1 reported dark tarry stool. Of note she was discharged from the hospital just 24 hours prior. She denied any nausea, vomiting, diarrhea or constipation. She was found to have a white count of [address] scan of the abdomen and pelvis was performed which revealed improved bilateral lower lobe pneumonia, no evidence of GI obstruction, possibility of slow transit time is suggested. On her CT March 13 she did have sigmoid colitis for which she was given Levaquin and Flagyl in the hospital as well as discharge prior. She denied any fevers, chills, chest pain, shortness of breath. In the emergency room she was given a liter saline and IV hydration. PAST MEDICAL HISTORY: Cervical cancer, hypertension, hypothyroidism, chronic pain, anxiety. PAST SURGICAL HISTORY: Appendectomy, , hysterectomy. SOCIAL HISTORY: She smokes a pack a day. She denies alcohol or drug use. ALLERGIES: Codeine and Flexeril. HOME MEDICATIONS: Clonidine 0.1 at bedtime, Omnicef 300 mg b.i.d., Suboxone 8 mg/2 mg b.i.d., Xanax 1 mg b.i.d., Seroquel 400 at bedtime, Flagyl 500 t.i.d., Levaquin 500 daily. REVIEW OF SYSTEMS: A 14 point review of systems is discussed with the patient with pertinent positives stated in HPI. She denied nausea, vomiting, diarrhea, constipation, black or bloody vomitus, bloody stool, any shortness of breath, cough, fever, chills, hematuria, dysuria. PHYSICAL EXAMINATION: GENERAL: This is a 51-year-old female who is sitting up in the bed in no distress. VITAL SIGNS: Blood pressure is 109/73 with a heart rate of 78, respirations are 20, temperature is 97.9 degrees with oxygen saturation 94%. HEENT: Head is normocephalic, atraumatic. Pupils equal, round, react to light. EOMs are intact. Sclerae anicteric. Mucous membranes are moist. NECK: Supple. Trachea midline. CARDIOVASCULAR: Regular rate and rhythm. S1 and S2 appreciated. PULMONARY: Breath sounds are clear with no increased work of breathing noted. GASTROINTESTINAL: Abdomen is soft, nondistended, generalized tenderness. Bowel sounds in all 4 quadrants. EXTREMITIES: No clubbing, cyanosis or edema. Calves are nontender. Pulses are palpable x4. NEUROLOGIC: She is alert and oriented x4. DIAGNOSTICS: WBC is 20.5 with hemoglobin 15.4, hematocrit 45.8, platelets of 299,000. Sodium is 139, potassium 3.4, BUN 15, creatinine 0.8 with a glucose of 104. Urinalysis is essentially negative. CT scan of the abdomen and pelvis reveals improvement in the bilateral lower lobe pneumonia. No evidence of gastrointestinal obstruction, possibility of slow transit time is suggested. ASSESSMENT AND PLAN: 1. Abdominal pain. 2. Leukocytosis. 3. Recent colitis. 4. Chronic pain. 5. Anxiety. 6. Hypertension. 7. Melena. Patient will be admitted to the hospital. We will place her on telemetry. We will check stool for blood. We will give IV hydration. As she did have colitis and was discharged on Levaquin and Flagyl we will continue these, will continue Omnicef, we will continue her home medications. Will guaiac all stools. Further treatments pending hospital course. Dictated by CAMILLA Alfaro for Justo Brown MD cc: CAMILLA Alfaro MD
[2017-03-16] MEDS: NS 1,000 ML IV SCH (17:54)
--- NOTE | 2017-03-16 18:40 | PROVIDER DOCUMENTATION ---
This chart was entered by Jagdish Godinez Scribe, acting as scribe for Madhav Bernardo DO. HPI-Abdominal Pain/GI Problem - General Chief Complaint: Abdominal Pain Stated Complaint: WEAKNESS, ABD PAIN Time Seen by Provider: 03/16/17 01:15 Source: patient Allergies/Adverse Reactions: Patient Allergies Allergy/AdvReac Type Severity Reaction Status Date / Time codeine Allergy ANAPHYLAXIS Verified 03/16/17 01:17 cyclobenzaprine HCl * Allergy ANAPHYLAXIS Verified 03/16/17 01:17 [From Flexeril] Home Medications: Home Medication List Medication Instructions Recorded Confirmed Last Taken Type Clonidine [Catapres] 0.1 mg PO HS 01/05/15 03/16/17 03/08/17 History Quetiapine Fumarate [Seroquel] 400 mg PO HS 01/05/15 03/16/17 03/15/17 History Alprazolam [Xanax] 1 mg PO BID 03/10/17 03/16/17 03/08/17 History Buprenorphine HCl/Naloxone HCl 1 each SL BID 03/10/17 03/16/17 Unknown History [Suboxone 8 mg/2 mg Sl Film] CefDINIR [Omnicef] 300 mg PO BID #20 capsule 03/14/17 03/16/17 03/15/17 Rx Levofloxacin [Levaquin] 500 mg PO DAILY #10 tablet 03/14/17 03/16/17 03/15/17 Rx Metronidazole [Flagyl] 500 mg PO TID #15 tablet 03/14/17 03/16/17 03/15/17 Rx - History of Present Illness-ABD Nature of Presenting Problems: 51 yo F presents to the ER with complaint of generalized abdominal pain and black tar stools since today. Pt was discharged from the hospital 2 days ago. Abdominal Pain Onset Location: reports: generalized abdomen Pain Radiation: reports: no radiation Quality of Pain: reports: aching, cramping Severity in ED: reports: mild Onset/Duration: reports: this morning Timing: reports: still present Associated Symptoms: reports: diarrhea, nausea Last BM: this afternoon Dark Stools Present?: reports: black, tarry Review of Systems - Adult - REVIEW OF SYSTEMS - ADULT Constitutional: denies: chills, fever Cardiovascular: denies: chest pain, palpitations Respiratory: denies: cough, shortness of breath Gastrointestinal: reports: abdominal pain, diarrhea, nausea. denies: vomiting Musculoskeletal: denies: back pain, neck pain All Other Systems: Reviewed and Negative Past History - Adult - PAST MEDICAL HISTORY-ADULT Review of Records: reports: Old Records Reviewed, Nursing Assessment Review, Medications Reviewed, Social history reviewed & non-contributory. Major Childhood Illnesses: reports: denies history Cardiovascular: reports: HTN Respiratory: reports: denies history Gastrointestinal: reports: denies history Obstetrical/Gynecological: reports: denies history Genitourinary: reports: denies history Musculoskeletal: reports: denies history Neurological: reports: denies history Endocrine/Immune: reports: thyroid disorder Other Conditions: reports: denies history - PRIOR SURGERIES/PROCEDURES Surgical/Procedure History: reports: appendectomy, hysterectomy, - IMMUNIZATION STATUS Childhood Immunizations: See Nurse Assessment Flu Vaccine: See Nurse Assessment - FAMILY HISTORY Family History: reviewed, not pertinent Physical Exam-General - PHYSICAL EXAM-ADULT Initial Vital Signs Reviewed: Yes - CONSTITUTIONAL General Appearance: appears well, alert, no apparent distress - HEAD, EARS, NOSE, MOUTH & THROAT HENMT: normocephalic/atraumatic, moist mucous membranes - RESPIRATORY Respiratory: chest non-tender, lungs clear - CARDIOVASCULAR Cardiovascular: normal peripheral pulses, regular rate, rhythm - GASTROINTESTINAL (ABDOMEN) Abdominal Exam: normal bowel sounds, non tender, soft - MUSCULOSKELETAL Extremity: normal range of motion, non-tender, normal gait - SKIN Integumentary: normal color, normal turgor, warm/dry Progress - PLAN OF CARE/RESULTS Progress/Plan/Lab Results: Vital Signs - 8 hr 03/16/17 01:13 Pulse Rate 108 H Respiratory Rate 22 Blood Pressure 69/51 O2 Sat by Pulse Oximetry 92 L Result Diagrams: 03/16/17 01:20 03/16/17 01:20 Departure - Departure Date of Disposition Decision: 03/16/17 Time of Disposition Decision: 02:30 DIAGNOSIS: GI bleeding Qualifiers: GI bleed type/associated pathology: diverticulitis Qualified Code(s): K57.93 - Diverticulitis of intestine, part unspecified, without perforation or abscess with bleeding Abdominal pain Qualifiers: Abdominal location: generalized Qualified Code(s): R10.84 - Generalized abdominal pain DIAGNOSIS: (Ruled Out): Abdominal pain affecting Disposition: ADMITTED INPATIENT 09 Certified Medical Emergency: Emergent Condition: Stable - Critical Care Note This patient required my direct & personal management of CC.: No This chart was documented by the indicated scribe, (Jagdish Godinez Scribe) and accurately reflects the services I performed and decisions made by me, Madhav Bernardo DO, as attested by the provider's signature.
[2017-03-16] MEDS: SEROQUEL PO SCH (20:25)
[2017-03-16] MEDS: OMNICEF PO SCH (20:26)
[2017-03-16] MEDS: CATAPRES PO SCH (20:26)
[2017-03-17 06:19] LABS: HEMATOCRIT 43.8 % (37.0-47.0); MCH 31.3 PG (27-31); MCV 97.8 FL (81-99); MPV 10.6 FL (7.4-10.4); RBC 4.48 XMIL (4.2-5.4)
[2017-03-17 06:31] LABS: AGAP 8; BUN 19 mg/dL (8-22); CALCIUM 8.2 mg/dL (8.8-10.2); CHLORIDE 103 mmol/L (98-107); COSMO 270; POTASSIUM 3.8 mmol/L (3.5-5.1); SODIUM 134 mmol/L (136-145); TCO2 23 mmol/L (25-35)
[2017-03-17] MEDS: NS 1,000 ML IV SCH ×2 (07:22→23:18)
[2017-03-17] MEDS: CULTURELLE PO SCH ×2 (09:05→20:44)
[2017-03-17] MEDS: XANAX PO PRN ×2 (09:05→20:44)
[2017-03-17] MEDS: SUBOXONE 8 MG/2 MG SL SCH ×2 (09:05→20:44)
[2017-03-17] MEDS: FLAGYL PO SCH ×3 (09:05→17:04)
[2017-03-17] MEDS: LEVAQUIN PO SCH (09:05)
[2017-03-17] MEDS: OMNICEF PO SCH (09:05)
[2017-03-17] MEDS ORDERED: TYLENOL PO PRN (09:49)
[2017-03-17] MEDS ORDERED: ZOFRAN IV PRN (09:49)
[2017-03-17] MEDS ORDERED: VANCOMYCIN IV PER PHARMACY MISC SCH (10:00)
[2017-03-17] MEDS: MILK OF MAGNESIA PO SCH (10:51)
[2017-03-17] MEDS: ZOSYN 3.375 GM/NS 3.375 GM/50 ML IVPB IV SCH ×4 (10:59→22:50)
[2017-03-17] MEDS ORDERED: VANCOMYCIN 1,950 MG in NS 500 ML IV ONE (11:00)
--- NOTE | 2017-03-17 12:04 | PROGRESS NOTE ---
DATE: 03/17/2017 SUBJECTIVE: The patient denies any cough, congestion. Denies any chest pain, palpitations. Does states that she has some abdominal pain but denies any fevers or chills. Denies any recent blood in her stool. Denies having a bowel movement since arrival. PHYSICAL: Temperature 97, pulse 74, respiratory rate 18, BP 85/65 to 90/64, sat 97% on 2 L.General: Patient is awake, alert. She is lying in bed. She is watching television in no acute distress. HEENT: Normocephalic atraumatic. Neck: Supple. CV: Regular rate. Chest: Clear. Abdomen: Soft. Positive bowel sounds. Diffusely tender. Nondistended. No masses. No rebound. No guarding. Extremities: Moves all extremities. Neurologic: No changes. LABS: Urine has no growth so far. Blood cultures no growth so far. WBCs 23, hemoglobin and hematocrit [address] of the abdomen demonstrates improved bilateral lower lobe pneumonia. No evidence of obstruction. ASSESSMENT: 1. Leukocytosis. 2. Abdominal pain improved. 3. Recent colitis. 4. Chronic pain on Suboxone. 5. Hypertension. 6. Recent episode of melena although has not had any further episodes in the ER or in the hospital. PLAN: As her white count continues to elevate we will change her antibiotics. We will continue Flagyl. We will change to vancomycin and Zosyn and follow. cc: Justo Brown MD
[2017-03-17] MEDS: SEROQUEL PO SCH (20:44)
[2017-03-17] MEDS: CATAPRES PO SCH (20:44)
[2017-03-17] MEDS ORDERED: VANCOMYCIN 1,450 MG in NS 250 ML IV SCH (23:00)
[2017-03-18] MEDS: ZOSYN 3.375 GM/NS 3.375 GM/50 ML IVPB IV SCH ×4 (05:11→22:20)
[2017-03-18 06:10] LABS: HEMATOCRIT 42.7 % (37.0-47.0); HEMOGLOBIN 13.6 g/dL (12.0-16.0); MCH 31.6 PG (27-31); MCHC 31.9 g/dL (33-37); MCV 99.1 FL (81-99); MPV 10.3 FL (7.4-10.4); RBC 4.31 XMIL (4.2-5.4)
[2017-03-18 06:46] LABS: AGAP 7; ALBUMIN 3.1 g/dL (3.5-5.0); ALKALINE PHOSPHATASE 54 U/L (32-104); BUN 9 mg/dL (8-22); CALCIUM 8.5 mg/dL (8.8-10.2); CHLORIDE 106 mmol/L (98-107); COSMO 274; GOT 14 U/L (10-30); GPT 11 U/L (10-36); POTASSIUM 4.1 mmol/L (3.5-5.1); SODIUM 138 mmol/L (136-145); TCO2 25 mmol/L (25-35); TOTAL PROTEIN 5.9 g/dL (6.3-8.3)
--- NOTE | 2017-03-18 06:52 | Diag Imaging Result Doc PS360 ---
EXAM: CHEST-2 VIEWS HISTORY: PNEUMONIA, LEUKOCYTOSIS TECHNIQUE: COMPARISON: 03/13/2017 FINDINGS: There are increased interstitial markings in the lung bases. The lungs are hyperexpanded. There is an increased AP diameter to the chest. No pleural effusions. IMPRESSION: 1.Emphysema 2.Persistent infiltrates or atelectasis in the right base. Decreased atelectasis in the left base although increased interstitial markings persist. Electronically signed by Chilo Sarabia 03/18/2017 6:50 AM
[2017-03-18] MEDS: XANAX PO PRN ×2 (09:00→22:18)
[2017-03-18] MEDS: MOVANTIK PO SCH (11:53)
[2017-03-18] MEDS: MILK OF MAGNESIA PO SCH (11:55)
[2017-03-18] MEDS: CULTURELLE PO SCH ×2 (11:55→22:19)
[2017-03-18] MEDS: SUBOXONE 8 MG/2 MG SL SCH ×2 (11:55→22:19)
[2017-03-18] MEDS: FLAGYL PO SCH ×3 (11:55→16:28)
[2017-03-18] MEDS: NS 1,000 ML IV SCH (11:56)
[2017-03-18] MEDS: LACTULOSE PO SCH ×2 (12:00→22:20)
--- NOTE | 2017-03-18 13:49 | PROGRESS NOTE ---
DATE: 03/18/2017 SUBJECTIVE: The patient notes that she is feeling better. She has had no bowel movement since she has been in the hospital. Denies any abdominal pain at the present time. Denies any cough, congestion. States her shortness of breath is improving. Still having dyspnea on exertion. OBJECTIVE: Vital signs: Temperature 97, pulse 70, respiratory rate 18, BP 98/68, saturation 95% on 1 L. General: Patient is awake, alert, currently in no respiratory distress. HEENT: Normocephalic. Neck: Supple. CV: Regular rate. Chest: Positive rhonchi. No appreciable crackles. No wheezing. Good air movement. Nonlabored. Abdomen: Soft, nondistended, nontender. Extremities: Moves all extremities. Neurologic: No changes. ASSESSMENT: 1. Leukocytosis. Continues to improve. White count today is down to 16 from a high of 23. 2. Hyponatremia resolved. Hypokalemia resolved. 3. Mild protein calorie malnutrition. 4. Melena. Patient has had no further bowel movements in the hospital so certainly would go against an acute gastrointestinal bleed. 5. Recent colitis likely was the cause of the melena. 6. Chronic pain and substance abuse. Will continue Suboxone. 7. Constipation likely caused by recent colitis and Suboxone. Will add lactulose and Movantik today and will follow. cc: Justo Brown MD
[2017-03-18] MEDS: SEROQUEL PO SCH (22:18)
[2017-03-18] MEDS: CATAPRES PO SCH (22:19)
[2017-03-19] MEDS: ZOSYN 3.375 GM/NS 3.375 GM/50 ML IVPB IV SCH ×4 (04:18→21:14)
[2017-03-19] MEDS: NS 1,000 ML IV SCH (04:20)
[2017-03-19 05:45] LABS: HEMATOCRIT 42.5 % (37.0-47.0); HEMOGLOBIN 13.6 g/dL (12.0-16.0); MCH 31.7 PG (27-31); MCV 99.1 FL (81-99); MPV 10.4 FL (7.4-10.4); RBC 4.29 XMIL (4.2-5.4)
[2017-03-19 06:10] LABS: AGAP 10; ALBUMIN 3.1 g/dL (3.5-5.0); ALKALINE PHOSPHATASE 58 U/L (32-104); BUN 11 mg/dL (8-22); CALCIUM 8.6 mg/dL (8.8-10.2); CHLORIDE 104 mmol/L (98-107); COSMO 279; GOT 13 U/L (10-30); GPT 10 U/L (10-36); POTASSIUM 3.8 mmol/L (3.5-5.1); SODIUM 140 mmol/L (136-145); TCO2 26 mmol/L (25-35); TOTAL PROTEIN 6.3 g/dL (6.3-8.3)
[2017-03-19] MEDS: MOVANTIK PO SCH (06:14)
--- NOTE | 2017-03-19 08:17 | Diag Imaging Result Doc PS360 ---
EXAM: KUB ABDOMEN HISTORY: pain TECHNIQUE: COMPARISON: None. FINDINGS: No bowel obstruction. No organomegaly. No foreign body. No abnormal calcifications. IMPRESSION: Negative exam. Electronically signed by Chilo Sarabia 03/19/2017 8:15 AM
--- NOTE | 2017-03-19 08:46 | PROGRESS NOTE ---
DATE: 03/19/2017 SUBJECTIVE: Patient notes she is feeling better. She has still not a bowel movement. Denies any chest pain or palpitations. Denies any fevers or chills. Denies any cough or congestion. Has not been out of bed much. OBJECTIVE: Vital Signs: Temperature 97, blood pressure 95/65 to 127/84, saturation 97% on 2 L. General: Patient is awake, alert, currently in no real respiratory distress. HEENT: Normocephalic and atraumatic. ZEKE. Neck: Supple. CV: Regular rate and rhythm. Chest: Clear. Abdomen: Soft and nondistended. Tender diffusely. Positive bowel sounds. No masses. No hepatosplenomegaly. Extremities: Moves all extremities. Neurologic: No focal changes. Skin: Warm and dry. No rashes. Diagnostic Data: WBCs 16. ASSESSMENT: 1. Leukocytosis, improved, currently down to 16. 2. Chronic abdominal pain, seems to be improving. 3. Recent colitis. She has had no further bowel movements in the hospital. 4. Melena. 5. Chronic anxiety. 6. Chronic pain. 7. Hypertension. PLAN: We will increase her lactulose. We will check a KUB. She is currently on Movantik to assist with her constipation. We will discontinue her Mckenna in an attempt to encourage to continue to get out of bed. We will saline lock. If she does not start having bowel movements, we will add an enema. Further orders as needed. cc: Justo Brown MD
[2017-03-19] MEDS: CULTURELLE PO SCH ×2 (08:57→21:13)
[2017-03-19] MEDS: FLAGYL PO SCH ×3 (08:57→15:59)
[2017-03-19] MEDS: MILK OF MAGNESIA PO SCH (08:57)
[2017-03-19] MEDS: LACTULOSE PO SCH ×2 (08:58→21:13)
[2017-03-19] MEDS: SUBOXONE 8 MG/2 MG SL SCH ×2 (09:03→21:14)
[2017-03-19] MEDS: NICODERM PATCH TD SCH (16:10)
[2017-03-19] MEDS: CATAPRES PO SCH (21:13)
[2017-03-19] MEDS: SEROQUEL PO SCH (21:13)
[2017-03-19] MEDS: XANAX PO PRN (21:13)
[2017-03-20] MEDS: ZOSYN 3.375 GM/NS 3.375 GM/50 ML IVPB IV SCH ×5 (03:34→22:55)
[2017-03-20] MEDS: MOVANTIK PO SCH (06:13)
[2017-03-20 07:15] LABS: OCCULT BLOOD 1 NEGATIVE (NEGATIVE)
[2017-03-20 08:01] LABS: HEMATOCRIT 42.5 % (37.0-47.0); MCHC 32.9 g/dL (33-37); MCV 97.3 FL (81-99); MPV 10.6 FL (7.4-10.4); RBC 4.37 XMIL (4.2-5.4)
[2017-03-20 09:02] LABS: AGAP 9; ALBUMIN 3.5 g/dL (3.5-5.0); ALKALINE PHOSPHATASE 60 U/L (32-104); BUN 13 mg/dL (8-22); CALCIUM 9.2 mg/dL (8.8-10.2); CHLORIDE 98 mmol/L (98-107); COSMO 266; GOT 15 U/L (10-30); GPT 12 U/L (10-36); MAGNESIUM 2.1 mg/dL (1.5-2.7); POTASSIUM 4.4 mmol/L (3.5-5.1); SODIUM 133 mmol/L (136-145); TCO2 26 mmol/L (25-35); TOTAL PROTEIN 6.5 g/dL (6.3-8.3)
[2017-03-20] MEDS: LACTULOSE PO SCH (09:23)
[2017-03-20] MEDS: CULTURELLE PO SCH ×2 (09:23→20:40)
[2017-03-20] MEDS: MILK OF MAGNESIA PO SCH (09:23)
[2017-03-20] MEDS: FLAGYL PO SCH ×3 (09:23→16:36)
[2017-03-20] MEDS: NICODERM PATCH TD SCH (09:24)
[2017-03-20] MEDS: SUBOXONE 8 MG/2 MG SL SCH ×2 (09:24→20:40)
[2017-03-20] MEDS: XANAX PO PRN ×2 (09:29→20:40)
[2017-03-20] MEDS: SEROQUEL PO SCH (20:40)
[2017-03-20] MEDS: CATAPRES PO SCH (20:40)
[2017-03-21] MEDS: LACTULOSE PO SCH ×3 (01:34→21:25)
[2017-03-21] MEDS: ZOSYN 3.375 GM/NS 3.375 GM/50 ML IVPB IV SCH ×4 (04:35→21:23)
[2017-03-21] MEDS: MOVANTIK PO SCH ×2 (05:54→06:18)
[2017-03-21] MEDS: FLAGYL PO SCH ×3 (09:29→16:41)
[2017-03-21] MEDS: CULTURELLE PO SCH ×2 (09:29→21:25)
[2017-03-21] MEDS: NICODERM PATCH TD SCH (09:30)
[2017-03-21] MEDS: MILK OF MAGNESIA PO SCH (09:30)
[2017-03-21] MEDS: XANAX PO SCH ×2 (09:30→21:25)
[2017-03-21] MEDS: SUBOXONE 8 MG/2 MG SL SCH ×2 (09:31→21:26)
--- NOTE | 2017-03-21 11:46 | PROGRESS NOTE ---
DATE: 03/21/2017 SUBJECTIVE: Patient notes that she is feeling better. She is starting to get out of bed a little bit better. Denies any cough or congestion. Denies any fevers or chills. States that she is still having shortness of breath with any activity. PHYSICAL EXAMINATION: Vital Signs: Temperature 97, pulse 74, respiratory rate 18, BP 94/56 to 74/47, saturation 97% on 2 L. General: Patient is awake, alert. She is in no respiratory distress. Neck: Supple. CV: Regular rate. Chest: Relatively clear. Abdomen: Soft. Extremities: Moves all extremities. Neurologic: No changes. DIAGNOSTIC DATA: WBCs improved down to 15. Sodium 133. IgG levels are all normal. ASSESSMENT: 1. Pneumonia. Continues to improve. Leukocytosis continues to improve. 2. Chronic abdominal pain. 3. Recent colitis. 4. Chronic anxiety. We will decrease patient's Xanax. We have been attempting to force this decreased outpatient. She has been reluctant. Therefore, we will decrease it in the hospital to 0.5. 5. Hypotension. Her blood pressures have remained low at night which certainly can be affecting her fatigue. We will stop her Klonopin, even though she has been using this for sleep. We will continue to follow. cc: Justo Brown MD
[2017-03-21] MEDS: XANAX PO PRN ×2 (12:28→16:52)
[2017-03-21] MEDS: SEROQUEL PO SCH (21:25)
[2017-03-22] MEDS: ZOSYN 3.375 GM/NS 3.375 GM/50 ML IVPB IV SCH ×4 (03:03→23:04)
[2017-03-22 06:21] LABS: HEMATOCRIT 43.1 % (37.0-47.0); HEMOGLOBIN 13.7 g/dL (12.0-16.0); MCH 31.4 PG (27-31); MCHC 31.8 g/dL (33-37); MCV 98.9 FL (81-99); MPV 10.5 FL (7.4-10.4); RBC 4.36 XMIL (4.2-5.4)
[2017-03-22] MEDS: MOVANTIK PO SCH (06:25)
[2017-03-22 06:41] LABS: AGAP 9; ALBUMIN 3.7 g/dL (3.5-5.0); ALKALINE PHOSPHATASE 61 U/L (32-104); BUN 19 mg/dL (8-22); CALCIUM 8.6 mg/dL (8.8-10.2); CHLORIDE 102 mmol/L (98-107); COSMO 276; GOT 21 U/L (10-30); GPT 16 U/L (10-36); MAGNESIUM 2.4 mg/dL (1.5-2.7); POTASSIUM 3.7 mmol/L (3.5-5.1); SODIUM 137 mmol/L (136-145); TCO2 27 mmol/L (25-35); TOTAL PROTEIN 6.7 g/dL (6.3-8.3)
[2017-03-22] MEDS ORDERED: SYNTHROID PO ONE ×3 (08:01→19:56)
[2017-03-22] MEDS: MILK OF MAGNESIA PO SCH (10:33)
[2017-03-22] MEDS: FLAGYL PO SCH ×3 (10:35→17:43)
[2017-03-22] MEDS: LACTULOSE PO SCH ×2 (10:35→20:51)
[2017-03-22] MEDS: CULTURELLE PO SCH ×2 (10:35→20:51)
[2017-03-22] MEDS: XANAX PO SCH ×2 (10:35→20:51)
[2017-03-22] MEDS: SUBOXONE 8 MG/2 MG SL SCH ×2 (10:36→20:49)
[2017-03-22] MEDS: NICODERM PATCH TD SCH (10:37)
[2017-03-22] MEDS: XANAX PO PRN (12:50)
[2017-03-22] MEDS: SEROQUEL PO SCH (20:51)
[2017-03-23] MEDS: XANAX PO PRN (03:14)
[2017-03-23] MEDS: ZOSYN 3.375 GM/NS 3.375 GM/50 ML IVPB IV SCH ×2 (04:51→09:24)
[2017-03-23] MEDS: MOVANTIK PO SCH (06:03)
[2017-03-23 06:38] LABS: HEMATOCRIT 41.5 % (37.0-47.0); HEMOGLOBIN 13.2 g/dL (12.0-16.0); MCH 31.2 PG (27-31); MCHC 31.8 g/dL (33-37); MCV 98.1 FL (81-99); MPV 10.7 FL (7.4-10.4); RBC 4.23 XMIL (4.2-5.4)
[2017-03-23 06:56] LABS: AGAP 12; ALBUMIN 3.7 g/dL (3.5-5.0); ALKALINE PHOSPHATASE 59 U/L (32-104); BUN 19 mg/dL (8-22); CALCIUM 8.7 mg/dL (8.8-10.2); CHLORIDE 103 mmol/L (98-107); COSMO 282; GOT 16 U/L (10-30); GPT 14 U/L (10-36); POTASSIUM 3.5 mmol/L (3.5-5.1); SODIUM 139 mmol/L (136-145); TCO2 24 mmol/L (25-35); TOTAL PROTEIN 6.5 g/dL (6.3-8.3)
[2017-03-23] MEDS ORDERED: SYNTHROID PO SCH ×2 (07:00)
[2017-03-23] MEDS: NICODERM PATCH TD SCH (08:06)
[2017-03-23] MEDS: SUBOXONE 8 MG/2 MG SL SCH ×2 (08:06→20:32)
[2017-03-23] MEDS: CULTURELLE PO SCH ×2 (08:07→20:33)
[2017-03-23] MEDS: FLAGYL PO SCH ×3 (08:07→17:24)
[2017-03-23] MEDS: LACTULOSE PO SCH ×2 (08:07→20:34)
[2017-03-23] MEDS: MILK OF MAGNESIA PO SCH (08:07)
[2017-03-23] MEDS: XANAX PO SCH ×2 (08:07→20:33)
--- NOTE | 2017-03-23 12:59 | PROGRESS NOTE ---
DATE: 03/22/2017 SUBJECTIVE: The patient notes that she is still very tired, fatigued. She is having difficulty getting out of bed, difficulty staying awake. She states that she feels like she has no muscle strength. Denies any chest pain or palpitations. Denies any fevers or chills. Denies any dysuria, frequency, urgency. Denies any melena, hematochezia. OBJECTIVE: Vital Signs reviewed. Temperature 98.1 degrees, pulse 81, respiratory rate 18, BP 123/87, saturation 93% on room air. General: The patient is awake, alert. She is currently in no respiratory distress. HEENT: Normocephalic, atraumatic. ZEKE. Neck supple. CV: Regular rate. No murmurs. Chest clear and unlabored. Good movement of air bilaterally. Abdomen soft nondistended. Extremities: Moves all extremities. Neurologic: No focal changes. Skin: Warm and dry. No rashes. DIAGNOSTIC DATA: WBCs is 13. CMP essentially normal. TSH elevated at 131. ASSESSMENT: 1. Severe hypothyroidism. After much discussion, the patient notes that she was told in an ER that she did not have thyroid disease and, therefore, she had stopped her Synthroid some time back. This was unbeknownst to us. 2. Hyponatremia, resolved. 3. Leukocytosis. Continues to improve. 4. Colitis certainly appears improving as she is starting to eat better. 5. Melena. She has had no further episodes in the hospital. 6. Pneumonia. Continues to improve. 7. Chronic abdominal pain, stable. 8. Chronic pain. She continues to take Suboxone. 9. Chronic anxiety. As noted, we will force the patient to wean Xanax down to 0.5 b.i.d. This has been attempted multiple times as an outpatient and has not been successful. PLAN: We will decrease her Xanax. We will add Synthroid and continue to follow. We will continue her Suboxone and further orders as needed. cc: Justo Brown MD
--- NOTE | 2017-03-23 13:04 | PROGRESS NOTE ---
DATE: 03/23/2017 SUBJECTIVE: Patient without any new complaints today. She is still tired and fatigued. Still anxious. Still asking to increase her Xanax back to 1 mg twice a day. Of course, she would also appreciate it if we would increase it further than that. Denies any chest pain, palpitations. Denies any fevers or chills. Denies any GI or issues. No further bleeding in her stool. OBJECTIVE/PHYSICAL: Temperature 97, pulse 76, respiratory rate 18, BP 122/82, sat 94% on room air. General: Patient is awake, alert. Currently, she is in no real respiratory distress. HEENT: Normocephalic atraumatic ZEKE. Neck: Supple. CV: Regular rate. Chest: Clear. Abdomen: Soft. Extremities: Moves all extremities. Neurologic: No changes. ASSESSMENT: 1. Chronic anxiety. I discussed with the patient that we will not increase her Xanax back to 1 mg b.i.d. I discussed with her the perils of Xanax, smoking, and opiates to include respiratory suppression and sudden . Discussed with patient that her blood pressure has actually slowly started improving after decreasing her Xanax. 2. Chronic opiate abuse. Patient currently is stable on Suboxone. 3. Acute pneumonia. Continue antibiotics. 4. Colitis. We will change her antibiotics over to p.o. Augmentin and follow. 5. Severe hypothyroidism. Her TSH actually is elevated this morning compared to yesterday which is an oddity as she was placed on Synthroid twice a day yesterday and her Synthroid actually went from 170 to 190 today. We will increase her Synthroid to 200 twice daily today and will follow. Patient currently is too fatigued and tired to be able to discharge home. Further orders as needed. Hopefully home in 1-2 days. cc: Justo Brown MD
[2017-03-23] MEDS: AUGMENTIN PO SCH (20:33)
[2017-03-23] MEDS: SEROQUEL PO SCH (20:33)
[2017-03-23] MEDS: SYNTHROID PO SCH (20:33)
[2017-03-24] MEDS: SYNTHROID PO SCH ×2 (06:14→20:40)
[2017-03-24] MEDS: MOVANTIK PO SCH (06:14)
[2017-03-24] MEDS ORDERED: SYNTHROID PO SCH (07:00)
[2017-03-24] MEDS: FLAGYL PO SCH ×3 (08:48→17:48)
[2017-03-24] MEDS: CULTURELLE PO SCH ×2 (08:48→20:41)
[2017-03-24] MEDS: SUBOXONE 8 MG/2 MG SL SCH ×2 (08:48→18:36)
[2017-03-24] MEDS: XANAX PO SCH ×2 (08:49→20:40)
[2017-03-24] MEDS: AUGMENTIN PO SCH ×2 (08:49→20:40)
[2017-03-24] MEDS: NICODERM PATCH TD SCH (08:49)
[2017-03-24] MEDS: LACTULOSE PO SCH ×2 (08:49→20:42)
[2017-03-24] MEDS: MILK OF MAGNESIA PO SCH (08:49)
[2017-03-24 10:02] LABS: AGAP 14; ALKALINE PHOSPHATASE 63 U/L (32-104); BUN 14 mg/dL (8-22); CALCIUM 9.5 mg/dL (8.8-10.2); CHLORIDE 102 mmol/L (98-107); COSMO 278; GOT 22 U/L (10-30); GPT 18 U/L (10-36); POTASSIUM 3.9 mmol/L (3.5-5.1); SODIUM 138 mmol/L (136-145); TCO2 22 mmol/L (25-35)
[2017-03-24 10:03] LABS: HEMATOCRIT 46.2 % (37.0-47.0); HEMOGLOBIN 14.9 g/dL (12.0-16.0); MCHC 32.3 g/dL (33-37); MCV 99.1 FL (81-99); MPV 11.1 FL (7.4-10.4); RBC 4.66 XMIL (4.2-5.4)
[2017-03-24 10:32] LABS: FREE T4 0.78 ng/dL (0.93-1.70)
--- NOTE | 2017-03-24 16:04 | PROGRESS NOTE ---
DATE: 03/24/2017 SUBJECTIVE: Patient without any new complaints. States she is still tired and fatigued. Otherwise notes that she is starting to feel a little bit better. Still complains of some anxiety issues at night. Would like to increase her Xanax back to 1 mg. OBJECTIVE: Vital Signs: Reviewed. She is afebrile. Blood pressure is stable. Heart rate 90. Respiratory rate 20. General: Patient is awake, alert. She is lying in bed. She is in no respiratory distress. Neck: Supple. CV: Regular rate. Chest: Relatively clear. Abdomen: Soft. Extremities: She moves all extremities. LABS PENDING: TSH still pending. ASSESSMENT: 1. Severe hypothyroidism. We increased her Synthroid to 200 twice a day yesterday. We will continue to increase if her TSH is not starting to improve. 2. Chronic anxiety. Discussed with patient that Xanax actually does not fix anything. Discussed with her that we will not increase her back to the 1 mg Xanax a day. Given the fact that she is a long-time smoker, she is on opiates and benzodiazepines, she dramatically increases her risk of sudden . Discussed with her the perils of sudden respiratory from benzodiazepines and opiates. 3. Leukocytosis. Continues to improve. 4. Pneumonia. Continues to improve. 5. Hypertension. 6. Abdominal pain. Resolved. PLAN: As noted above, we will continue Synthroid until her TSH has started improving, then we will discharge her home with close followup. We will not increase her Xanax at this point. cc: Justo Brown MD
[2017-03-24] MEDS: SEROQUEL PO SCH (20:40)
[2017-03-25] MEDS: MOVANTIK PO SCH (06:18)
[2017-03-25] MEDS: SUBOXONE 8 MG/2 MG SL SCH (06:19)
[2017-03-25] MEDS: SYNTHROID PO SCH (06:19)
[2017-03-25] MEDS: NICODERM PATCH TD SCH (08:35)
[2017-03-25] MEDS: AUGMENTIN PO SCH (08:35)
[2017-03-25] MEDS: FLAGYL PO SCH ×2 (08:35→13:08)
[2017-03-25] MEDS: CULTURELLE PO SCH (08:35)
[2017-03-25] MEDS: XANAX PO SCH (08:36)
[2017-03-25] MEDS: MILK OF MAGNESIA PO SCH (08:36)
[2017-03-25] MEDS: LACTULOSE PO SCH (08:36)
[2017-03-25 11:23] LABS: HEMATOCRIT 46.1 % (37.0-47.0); HEMOGLOBIN 15.1 g/dL (12.0-16.0); MCH 31.5 PG (27-31); MCHC 32.8 g/dL (33-37); MCV 96.2 FL (81-99); MPV 10.5 FL (7.4-10.4); RBC 4.79 XMIL (4.2-5.4)
[2017-03-25 11:45] VITALS: BP 92/68
--- NOTE | 2017-03-26 06:23 | DISCHARGE SUMMARY ---
ADMISSION DATE: 03/16/2017 DISCHARGE DATE: 03/25/2017 DISCHARGE DIAGNOSES: 1. Severe hypothyroidism. Her thyroid stimulating hormone was at a maximum of 190, currently down to 70. We will continue at home. 2. Leukocytosis. Unclear as to the etiology of her current leukocytosis. Certainly, her chest x- ray has improved. Clinically, she has improved. She is having no abdominal pain. No cough, no congestion, no shortness of breath. Certainly, it can be inflammatory. 3. Fatigue is improving with her thyroid. 4. Hypertension, stable. 5. Chronic anxiety. Again, I discussed with the patient that she cannot take 1 mg Xanax of twice a day every day with Suboxone. 6. Chronic opiate abuse. CONSULTATIONS: None. PROCEDURES: None. BRIEF HOSPITAL COURSE: The patient is a 51-year-old female who presented to the emergency department and subsequently admitted as noted on the HPI. She was noted to be severely hypothyroid with a TSH at 170 to 190. This is secondary to her admission stating she had gone to an ER, and they told her that she did not have hypothyroidism, and therefore, she stopped her TSH. Thankfully, she had an uneventful hospital course. She continued to improve. On discharge, she is awake, alert. She is in no distress. DISPOSITION: I discussed with the patient the perils of smoking, as well as drinking. I discussed with her she cannot drink alcohol on Flagyl. I discussed with her taking Synthroid 200 mcg twice a day for the next 4 days and then going down to once a day. I discussed with her that she needs to have a level checked in the next 1 to 2 weeks. TIME SPENT: There was 35 minutes that was spent in discharge planning and instructions. cc: Justo Brown MD
== END 2017-03-25 16:15 | disposition home or self-care (01) ==
LOC: P.ED 01:10 → P.MEDSURG 04:54
PROVIDERS: ADMIT Family Medicine; ATTEND Family Medicine